=== PATIENT | male | born 1975 | race Hispanic/Latino ===

== ENCOUNTER 2017-09-17 01:25 | Emergency (ER) | payer SELFPAY ==
[2017-09-17] MEDS ORDERED: Lidocaine 1% PF 5 ML VIAL ONE (04:16)
[2017-09-17] MEDS ORDERED: Adacel (T-DAP) 0.5 ML VIAL ONE (04:16)
[2017-09-17] MEDS ORDERED: Ibuprofen 800 MG TAB ONE (05:30)
--- NOTE | 2017-09-17 09:39 | RAD ---
RIGHT FOREARM 2 VIEWS: Date: 09/17/17 HISTORY: Pain. Injury. COMPARISON: None. FINDINGS: No fracture. No cortical irregularity or periosteal reaction. IMPRESSION: No fracture. POS: [facility]
== END 2017-09-17 06:14 | disposition home or self-care (01) ==
LOC: ERS 01:25
DX: S51.811A Laceration without foreign body of right forearm, initial encounter (principal); F17.210 Nicotine dependence, cigarettes, uncomplicated; W25.XXXA Contact with sharp glass, initial encounter
CPT/HCPCS: 12004; 90471; 90715; J2001